=== PATIENT | female | born 2000 | race African-American/Black ===

== ENCOUNTER 2022-02-13 10:16 | Day surgery (SDC) | payer OTHER ==
[2022-02-13 11:01] VITALS: BMI 24.0
[2022-02-13] MEDS ORDERED: hydrALAZINE 20 MG/ML VIAL SLOW IVP PRN (11:09)
[2022-02-13] MEDS ORDERED: Ondansetron ODT 8 MG TAB SL PRN (11:24)
[2022-02-13] MEDS ORDERED: Lactated Ringer's 1,000 ML IV SCH (11:30)
[2022-02-13] MEDS ORDERED: Acetaminophen 500 MG TAB PO SCH (11:30)
[2022-02-13] MEDS ORDERED: Ondansetron ODT 4 MG TAB SL PRN (11:45)
[2022-02-13 12:57] LABS: #Basophils 0.1 10x3/uL (0.0-0.2); #Monocytes 0.6 10x3/uL (0.0-1.1); %Basophils 0.5 % (0.0-2.0); %Eosinophils 0.1 % (0.0-6.0); %Lymphocytes 10.5 % (18.0-47.0); %Monocytes 5.5 % (0.0-10.0); %Neutrophils 81.7 % (40.0-75.0); Hemoglobin 9.5 g/dL (12.0-15.5); Mean Corpuscular HGB CONC 32.6 g/dL (32.0-36.0); Mean Corpuscular Hemoglobin 26.9 pg (27.0-33.0); Mean Corpuscular Volume 82.4 fl (81.6-98.3); Mean Platelet Volume 8.6 fl (7.4-10.4); Platelet Count 267 10x3/uL (150-450); RBC Distribution Width 12.8 % (11.5-14.5); Red Blood Cell (RBC) Count 3.53 10x6/uL (3.90-5.03)
[2022-02-13] MEDS ORDERED: AMOXicillin 500 MG CAP PO SCH (13:00)
[2022-02-13] MEDS ORDERED: AMOXicillin 250 MG CAP PO SCH (13:00)
[2022-02-13 13:12] LABS: Anion Gap 11 mmol/L (10-20); BUN (Urea Nitrogen) 7 mg/dL (7.0-18.7); Calc. Creatinine Clearance 146 mL/min (70-130); Calcium 8.3 mg/dL (7.8-10.44); Carbon Dioxide 21 mmol/L (22-29); Chloride 108 mmol/L (98-107); Glucose 68 mg/dL (70-105); Potassium 4.1 mmol/L (3.5-5.1); Sodium 136 mmol/L (136-145)
== END 2022-02-13 17:00 | disposition home or self-care (01) ==
LOC: CSHLD/OP 10:16
PROVIDERS: ATTEND Obstetrics & Gynecology
DX: O21.2 Late vomiting of pregnancy (principal); O99.891 Other specified diseases and conditions complicating pregnancy; R10.9 Unspecified abdominal pain; R19.7 Diarrhea, unspecified; O47.03 False labor before 37 completed weeks of gestation, third trimester; O99.283 Endocrine, nutritional and metabolic diseases complicating pregnancy, third trimester; E86.0 Dehydration; Z3A.29 29 weeks gestation of pregnancy
CPT/HCPCS: 36415; 80048; 85025; 87040; Q0162

== ENCOUNTER 2022-03-21 10:13 | Day surgery (SDC) | payer OTHER, BC ==
[2022-03-21] MEDS ORDERED: hydrALAZINE 20 MG/ML VIAL SLOW IVP PRN (10:34)
== END 2022-03-21 15:15 | disposition home or self-care (01) ==
LOC: CSHLD/OP 10:13
PROVIDERS: ATTEND Student in an Organized Health Care Education/Training Program
DX: Z01.89 Encounter for other specified special examinations (principal); O36.5930 Maternal care for other known or suspected poor fetal growth, third trimester, not applicable or unspecified; Z3A.34 34 weeks gestation of pregnancy
CPT/HCPCS: 76819

== ENCOUNTER 2022-04-06 22:30 | Emergency (ER) | payer OTHER, BC ==
[2022-04-06 23:37] LABS: Bilirubin Neg (Negative); Blood, Urine Negative (Negative); Clarity Clear (Clear); Glucose, Urine (Dipstick) Normal (Negative); Ketone, Urine 15 mg/dL (Negative); Leukocyte Negative (Negative); Nitrite Negative (Negative); Protein, Urine (Dipstick) Negative (Neg-Trace); Specific Gravity, Urine 1.005 (1.002-1.036); Urobilinogen Normal mg/dL (Less than 2)
[2022-04-07 00:32] LABS: ALT (SGPT) Less than 6 U/L (8-55); AST (SGOT) 10 U/L (5-34); Albumin 2.9 g/dL (3.5-5.0); Alkaline Phosphatase 214 U/L (40-110); Anion Gap 15 mmol/L (10-20); BUN (Urea Nitrogen) 6 mg/dL (7.0-18.7); Bilirubin, Total 0.4 mg/dL (0.2-1.2); Calc. Creatinine Clearance 0 mL/min (70-130); Calcium 8.2 mg/dL (7.8-10.44); Carbon Dioxide 19 mmol/L (22-29); Chloride 109 mmol/L (98-107); Globulin 2.3 g/dL (2.4-3.5); Glucose 87 mg/dL (70-105); Potassium 3.5 mmol/L (3.5-5.1); Protein, Total 5.2 g/dL (6.0-8.3); Sodium 139 mmol/L (136-145)
[2022-04-07 00:33] LABS: Hemoglobin 8.9 g/dL (12.0-15.5); Mean Corpuscular HGB CONC 32.6 g/dL (32.0-36.0); Mean Corpuscular Hemoglobin 25.1 pg (27.0-33.0); Mean Corpuscular Volume 77.1 fl (81.6-98.3); Mean Platelet Volume 9.6 fl (7.4-10.4); Platelet Count 279 10x3/uL (150-450); RBC Distribution Width 14.6 % (11.5-14.5); Red Blood Cell (RBC) Count 3.54 10x6/uL (3.90-5.03); White Blood Cell (WBC) Count 9.3 10x3/uL (3.5-10.5)
[2022-04-07 00:34] LABS: MDiff Complete? YES
[2022-04-07 03:20] LABS: Band 2 % (5-11); Eosinophils 3 % (0-10); Lymphocytes 27 % (21-51); Metamyelocyte 1 % (0-0); Monocytes 15 % (0-10); Neutrophil 52 % (42-75)
[2022-04-07 03:22] LABS: Anisocytosis SLIGHT = 6-15 cells (100X) (0-5/hpf); Microcytosis SLIGHT = 6-15 cells (100X) (0-5/hpf); Platelet Morphology Comment Appears Adequate
== END 2022-04-07 01:20 | disposition home or self-care (01) ==
LOC: CSHERS 22:30
DX: O99.353 Diseases of the nervous system complicating pregnancy, third trimester (principal); R55 Syncope and collapse; O99.113 Other diseases of the blood and blood-forming organs and certain disorders involving the immune mechanism complicating pregnancy, third trimester; D64.9 Anemia, unspecified; Z3A.37 37 weeks gestation of pregnancy
CPT/HCPCS: 80053; 81003; 85025; 93005; 96360

== ENCOUNTER 2022-04-10 09:07 | Day surgery (SDC) | payer OTHER, BC ==
[2022-04-10] MEDS ORDERED: Acetaminophen 500 MG TAB ONE (09:14)
[2022-04-10] MEDS ORDERED: Iron Sucrose Complex 500 MG in Sodium Chloride 0.9% 250 ML 250 ML IVPB SCH (10:00)
[2022-04-10] MEDS ORDERED: Acetaminophen 500 MG TAB PO SCH (10:00)
== END 2022-04-10 14:10 | disposition home or self-care (01) ==
LOC: CSHSDC/OP 09:07
PROVIDERS: ATTEND Student in an Organized Health Care Education/Training Program
DX: O99.019 Anemia complicating pregnancy, unspecified trimester (principal)
CPT/HCPCS: J1756; J7050